=== PATIENT | male | born 1985 | race Caucasian/White ===

== ENCOUNTER → 2016-12-06 | Outpatient (CLI) | payer OTHER ==
[~2016-12-06] MED LIST: AMOXICILLIN500 MG PO; ASPIR LOW81 MG PO; CLARITIN10 MG PO; CYCLOBENZAPRINE10 MG PO; DIFLUCAN200 MG PO; FLEXERIL10 MG PO; FLONASE ALLERG9.9 ML NAS; HYDR12.5C PO; HYDROCODONE BIT1 T11 PO; NAPROSYN500 MG PO; NASACORT A55 MCG/Act NS; Nizoral 2%15 GM PO; PREDNISONE10 MG PO; PROAIR HFA8.5 GM INH; VITAMIN B COMPL1 CAP PO; ZYRTEC10 MG PO
[2016-12-06 17:05] LABS: BASO # 0.1 10*3/uL (0.0-0.1); BASO % 0.6 % (0.0-1.0); EOS # 0.4 10*3/uL (0.0-0.4); EOS % 4.9 % (1.0-4.0); HEMATOCRIT 41.9 % (42.0-52.0); HEMOGLOBIN 13.5 g/dl (14.0-18.0); LYMPH % 23.8 % (27.0-41.0); MEAN CORPUSCULAR HGB 27.4 pg (27.0-31.0); MEAN CORPUSCULAR HGB CONC 32.2 g/dl (33.0-37.0); MONO # 0.6 10*3/uL (0.1-1.0); NEUT # 5.3 10*3/uL (2.3-7.9); NEUT % 63.3 % (47.0-73.0); PLATELET COUNT AUTOMATED 270 10*3/uL (130-400); RED BLOOD COUNT 4.93 10*6/uL (4.50-5.90); RED CELL DISTRI WIDTH 13.4 % (0-14.5); WHITE BLOOD COUNT 8.4 10*3/uL (4.8-10.8)
== END | disposition home or self-care (01) ==
LOC: LAB 15:18
PROVIDERS: Family Medicine
DX: E03.9 Hypothyroidism, unspecified (principal)

== ENCOUNTER 2018-03-19 10:02 | Emergency (ER) | payer OTHER ==
[~2018-03-19] VITALS: Ht 190.5 cm; Wt 127.0 kg
[~2018-03-19 10:02] MED LIST changes: +ALL DAY ALLERGY10 MG PO; +HYDROCHLOROTHIA25 M1 PO; +LEVOTHYROXINE150 MCG PO; +Motrin,Rufen800 MG PO; +VITAMIN D50000 UNIT PO
[2018-03-19] MEDS ORDERED: CHLORZOXAZONE500 M2 PO (10:16)
== END 2018-03-19 12:13 | disposition home or self-care (01) ==
LOC: ED 10:02
DX: S39.012D Strain of muscle, fascia and tendon of lower back, subsequent encounter (principal); R03.0 Elevated blood-pressure reading, without diagnosis of hypertension; Z91.041 Radiographic dye allergy status; Z88.8 Allergy status to other drugs, medicaments and biological substances; Z79.899 Other long term (current) drug therapy; X58.XXXD Exposure to other specified factors, subsequent encounter

== ENCOUNTER → 2020-05-15 | Outpatient (CLI) | payer SELFPAY ==
[~2020-05-15] MED LIST changes: +CHLORZOXAZONE500 M2 PO
== END | disposition home or self-care (01) ==
LOC: COVID19 09:47
PROVIDERS: ATTEND Nurse Practitioner Primary Care
DX: U07.1 COVID-19 (principal)

== ENCOUNTER → 2022-09-01 | Outpatient (CLI) | payer BC | END | disposition home or self-care (01) | LOC: COVID19 12:08 | PROVIDERS: ATTEND Internal Medicine | DX: U07.1 COVID-19 (principal) ==

== ENCOUNTER → 2024-08-19 | Outpatient (CLI) | payer BC | END | disposition home or self-care (01) | LOC: CARD 08:00 | PROVIDERS: ATTEND Physician Assistant | DX: R00.2 Palpitations (principal) ==